=== PATIENT | female | born 1955 | race Caucasian/White ===

== ENCOUNTER 2021-11-17 17:59 | Emergency (ER) | payer BC ==
[~2021-11-17] VITALS: Ht 154.9 cm; Wt 72.6 kg
[2021-11-17] MEDS ORDERED: MORPHINE 4 MG INJ. 4 MG/ML VIAL IVP ONE (18:30)
[2021-11-17] MEDS ORDERED: ONDANSETRON HCL 4 MG/2 ML VIAL IVP ONE ×2 (18:30→23:15)
[2021-11-17] MEDS ORDERED: NACL 0.9% 1,000 ML IV ONE (18:30)
[2021-11-17] MEDS ORDERED: DIATR MEGLU/DIATRIZ SOD 30 ML SOLUTION PO ONE (19:12)
[2021-11-17] MEDS ORDERED: GASTROGRAFIN 120 ML PO ONE (19:15)
--- NOTE | 2021-11-17 19:20 | NUR ---
# 20 gauge angiocath placed to . Use of asceptic technique. Opsite placed over site. Blood return noted. Blood for lab drawn from site. Flushed with 10 cc of normal saline. No evidence of infiltration noted. Patient tolerated well.
[2021-11-17 19:27] LABS: BASOPHILS % (AUTO) 0.3 % (0.0-2.0); EOSINOPHILS # (AUTO) 0.1 K/uL (0.0-0.4); EOSINOPHILS % (AUTO) 0.8 % (0.0-4.0); HEMATOCRIT 42.3 % (36-48); HEMOGLOBIN 13.6 g/dL (12.0-16.0); LYMPHOCYTES # (AUTO) 1.9 K/uL (1.0-5.5); LYMPHOCYTES % (AUTO) 13.6 % (20.5-51.5); MEAN CORPUSCULAR HEMOGLOBIN 26 pg (27-31); MEAN CORPUSCULAR HGB CONC 32 % (32-36); MEAN CORPUSCULAR VOLUME 81 fL (79.0-98.0); MONOCYTES # (AUTO) 0.7 K/uL (0.0-1.0); MONOCYTES % (AUTO) 5.2 % (1.7-9.3); NEUTROPHILS # (AUTO) 11.4 K/uL (1.8-7.7); NEUTROPHILS % (AUTO) 80.1 % (40.0-70.0); PLATELET COUNT (AUTO) 361 K/uL (130-430); RED BLOOD CELL COUNT(AUTO) 5.26 MIL/uL (4.2-6.2); RED CELL DISTRIBUTION WIDTH 13.5 % (9.0-15.0); WHITE BLOOD COUNT (AUTO) 14.2 K/uL (4.8-10.8)
[2021-11-17 19:35] LABS: CALCIUM 8.6 mg/dL (8.4-11.0); CREATININE 0.82 mg/dL (0.55-1.30); POTASSIUM 4.4 mmol/L (3.5-5.1)
[2021-11-17 19:41] LABS: ALBUMIN 3.5 g/dL (3.4-4.8)
[2021-11-17] MEDS ORDERED: HYDROmorphone 1 MG/ML INJ. CARTRIDGE IVP ONE (20:30)
[2021-11-18] MEDS ORDERED: PROCHLORPERAZINE EDISYLATE 10 MG/2 ML VIAL IVP ONE (00:30)
--- NOTE | 2021-11-18 02:46 | NUR ---
[facility] ADMITTING CALLED BACK AND NOTIFIED ME THAT PATIENT IS [facility] AND SHE CALLED AND LEFT MESSAGE
[2021-11-18] MEDS ORDERED: HALOPERIDOL LACTATE 5 MG/ML VIAL IVP ONE (04:45)
--- NOTE | 2021-11-18 04:52 | NUR ---
CIARA SWABBED BY
[2021-11-18] MEDS ORDERED: HALOPERIDOL LACTATE 5 MG/ML VIAL ONE (05:06)
[2021-11-18] MEDS ORDERED: fentaNYL CITRATE/PF 100 MCG/2 ML AMP ONE (05:07)
[2021-11-18] MEDS ORDERED: fentaNYL CITRATE/PF 100 MCG/2 ML AMP IVP ONE (05:15)
--- NOTE | 2021-11-18 06:53 | NUR ---
RECIEVED CALL FROM [facility] ADV THAT PT HAS ROOM NUMBER 564 BED 1 ADMINTING/RECIEVING DOCTOR IS DR BAUMAN, ASKED THAT [facility]PRT TO BE CALLED AFTER 729, [facility] WILL BE TRANSPORT. WILL CALL BACK WITH GARRISON DAVALOS. [facility]PRT TO BE CALLD TO [place] [phone] EXT [phone]
--- NOTE | 2021-11-18 09:19 | NUR ---
Called [facility], ETA 1430.
[2021-11-18 09:39] VITALS: BP_SYST 121
--- NOTE | 2021-11-18 10:06 | NUR ---
A/OX4 VSS , RESPIRATIONS EVEN NON LABORED, POSITIONED FOR COMFORT, AWARE OF TRANSFER
--- NOTE | 2021-11-18 11:02 | NUR ---
[facility] HERE TO TAKE PT TO [facility] ([place]) 134/71 20 98 98.2
== END 2021-11-18 11:05 | disposition admitted as inpatient to this hospital (09) ==
LOC: SED 17:59
DX: R10.84 Generalized abdominal pain (principal); R11.2 Nausea with vomiting, unspecified; K85.90 Acute pancreatitis without necrosis or infection, unspecified; K44.9 Diaphragmatic hernia without obstruction or gangrene; Z20.822 Contact with and (suspected) exposure to COVID-19
CPT/HCPCS: 36415; 74176; 76376; 80053; 83690; 85025; 86886; 86900; 86901; 87426; 96361; 96374; 96375 ×2; 96376; 99284; J0780; J1170; J1630; J2270; J2405; J3010; J7030; Q9963; Q9964